=== PATIENT | female | born 2000 | race Caucasian/White ===

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

== ENCOUNTER → 2019-02-22 13:55 | Outpatient (CLI) | payer OTHER, MEDICAID, SELFPAY ==
[2019-02-23 11:23] LABS: Strep Grp B PCR NEG for Grp B Strep
== END ==
DX: Z34.03 Encounter for supervision of normal first pregnancy, third trimester (principal); Z3A.35 35 weeks gestation of pregnancy
CPT/HCPCS: 87653

== ENCOUNTER 2019-03-31 06:09 | Observation (INO) | payer OTHER, MEDICAID, SELFPAY ==
[2019-03-31 08:05] LABS: Add Manual Diff / Slide Review NO; Basophils Absolute Auto 200 /uL (0-100); Basophils Percent Auto 1.2 % (0-2); Eosinophils Absolute Auto 400 /uL (0-450); Hematocrit 34.3 % (36-46); Hemoglobin 11.2 g/dL (12.0-16.0); Lymphocytes Absolute Auto 3600 /uL (1100-4500); Lymphocytes Percent Auto 27.2 % (25-40); Mean Corpuscular HGB Conc 32.7 % (30-36); Mean Corpuscular Hemoglobin 26.7 PG (26-34); Mean Corpuscular Volume 81.4 fL (80-100); Monocytes Absolute Auto 900 /uL (0-900); Monocytes Percent Auto 6.7 % (3-14); Neutrophils Absolute Auto 8300 /uL (1500-7000); Neutrophils Percent Auto 61.9 % (50-75); Platelet Count 293 X10^3/uL (150-400); Red Blood Cell Count 4.21 X10^6/uL (4.0-5.2); Red Cell Distribution Width 15.2 % (11.6-14.8); White Blood Cell Count 13.4 X10^3/uL (4.5-11.0)
[2019-03-31] MEDS: OXYTOCIN PREMIX 30 UNIT/500 ML PLAST..BAG IV (08:14)
--- NOTE | 2019-03-31 09:04 | PM.OBHP.1 ---
OB HPI History of Present Condition Chief complaint: LABOR : 1 Para: 0 Estimated Date of Delivery: 03/28/19 Estimated Gestational Age (weeks): 40 Narrative: Erika Urrutia is a 18 year old female two para 0 AB1 who is brought in for elective induction of labor. The patient had a UPJ obstruction which has gradually gotten better during the course of the . She has been seen and evaluated at [facility]. The patient's was otherwise uneventful. She remained normotensive. Urines remain negative for glucose and protein. Evaluation Evaluation Laboratory results: Laboratory Tests 03/31/19 03/31/19 07:55 07:55 WBC 13.4 H RBC 4.21 Hgb 11.2 L Hct 34.3 L MCV 81.4 MCH 26.7 MCHC 32.7 RDW 15.2 H Plt Count 293 Neut % (Auto) 61.9 Lymph % (Auto) 27.2 [place]hen[place] % (Auto) 6.7 Eos % (Auto) 3.0 Baso % (Auto) 1.2 Neut # (Auto) 8300 H Lymph # (Auto) 3600 [place] # (Auto) 900 Eos # (Auto) 400 Baso # (Auto) 200 H Blood Type A Positive Antibody Screen Negative [facility] Social History Smoking Status: Current every day smoker Social History Smoking Status: Current every day smoker Meds Home Medications and Allergies Allergies Allergy/AdvReac Type Severity Reaction Status Date / Time pineapple Allergy Anaphylaxis Verified 09/28/18 13:48 Review of Systems Review of Systems ROS Unobtainable: All systems reviewed & are unremarkable except as noted in HPI and below Exam Const General: cooperative and healthy appearing [facility] Head: normal to inspection Ears: hearing grossly normal bilaterally Nose: external nose normal Face and sinus: normal facial exam Mouth: oral mucosae normal, lip normal, tongue normal and moist mucous membranes Teeth and gingiva: dentition normal Throat: posterior oropharynx normal Eyes General: appearance normal, both eyes and all related structures Neck Neck: normal visual inspection and full ROM Chest Chest: normal inspection of the chest and normal palpation of entire chest wall Breast inspection: normal inspection of the breasts and normal inspection of the axillae Breast Palpation: normal palpation of the breasts and normal palpation of the axillae Resp Effort & Inspection: normal respiratory effort Auscultation: clear to auscultation bilaterally Cardio Palpation: normal PMI Rate: regular rate Rhythm: regular rhythm Heart Sounds: S1 normal and S2 normal GI Inspection: normal to inspection Palpation: soft and no hepatosplenomegaly Percussion: normal to percussion Auscultation: normal bowel sounds OB/External & Speculum: external exam normal Manual OB Exam: dilated 1, effaced 50% and station -2 Uterus Location (Fundal Height): 38 Back/Spine/Pelvis Thoracic/Lumbar Spine: thoracic and lumbar spine normal to inspection Skin General: no rashes or lesions noted Neuro General: alert, oriented x3, tone normal and moves all extremities Cognition: normal cognition Speech: speech normal Gait: normal gait Motor: muscle tone normal throughout Sensory Exam: no sensory deficits noted Extrem General: normal to inspection and normal exam except as noted Psych Appearance: grossly normal and well kempt Mental Status: mental status grossly normal Speech and Movement: speech and movement normal Objective Labs Result Diagrams: 03/31/19 07:55 Labs: Laboratory Results - last 24 hr 03/31/19 03/31/19 07:55 07:55 WBC 13.4 H RBC 4.21 Hgb 11.2 L Hct 34.3 L MCV 81.4 MCH 26.7 MCHC 32.7 RDW 15.2 H Plt Count 293 Neut % (Auto) 61.9 Lymph % (Auto) 27.2 Mchenry % (Auto) 6.7 Eos % (Auto) 3.0 Baso % (Auto) 1.2 Neut # (Auto) 8300 H Lymph # (Auto) 3600 [place] # (Auto) 900 Eos # (Auto) 400 Baso # (Auto) 200 H Blood Type A Positive Antibody Screen Negative Assessment and Plan Assessment and Plan Assessment and Plan narrative: Term intrauterine History of UPJ obstruction Patient for induction of labor Patient's cervix appears less favorable than exam in the office. Will give the patient 3 hours of Pitocin and then re-exam
--- NOTE | 2019-03-31 11:07 | DI.US.S_ITS ---
PROCEDURE: US OB LIMITED INDICATIONS: HEART RATE DECELS OUTSIDE/PRIOR DATING DATA: Last menstrual period (LMP): Not available. LMP-based estimated date of delivery (JEISON): Not available. First dating scan (date and location): 09/28/2018 at [facility] Estimated date of delivery (JEISON) from first dating scan: 03/26/2019. TECHNIQUE: Real-time scanning was performed of the fetus, with image documentation and biometric measurements. Endovaginal scanning: Not performed COMPARISON: [facility], US, US OB <= 14 WEEKS FETUS, 10/01/2018, 14:02. [facility], US, US OB GROWTH, 09/28/2018, 9:44. [facility], US, US OB >= 14 WEEKS FETUS, 11/26/2018, 11:13. [facility], US, US ABDOMEN LIMITED, 11/09/2018, 12:13. FINDINGS: General: A single living intrauterine gestation is present. Presentation: Vertex. Placenta: Placental position is anterior, without previa. Amniotic fluid index: 20.1 cm, normal range is 5-24 cm. heart rate: 120 beats per minute. Maternal cervical canal: Not visualized IMPRESSION: 1. A single living intrauterine gestation with estimated date of delivery 03/26/1019. 2. Normal DIPAK. 3. The fetus is in vertex presentation. 4. Placenta anterior. The inferior placenta margin is not visualized due to gestational age. Dictated by: Lora Cintron M.D. on 03/31/2019 at 11:51 Approved by: Lora Cintron M.D. on 04/01/2019 at 17:59
--- NOTE | 2019-03-31 12:07 | PM.OBPNLAB ---
Date/Time Date Patient Seen: 03/31/19 Time Patient Seen: 12:09 Pain Control Pain control: tolerating well Pelvic Exam Dilation (cm): 1 Effacement (%): 50 station: -2 Amniotic membrane status: Intact Comments: Patient with heart tones in the 105-110 range. Scratching on baby's head raises heart tones this repetitively to 150. Ultrasound shows an DIPAK of 20. DIPAK shows breathing and good movement. Contractions Contractions on admission: irregular Status status: Category ll Heart Rate Baseline: 105 Monitor Accelerations: Present Monitor Decelerations: Absent Assessment and Plan Assessment: other (Failed induction. Cervix not is favorable is thought. Will repeat induction with prostaglandins) Plan: other
--- NOTE | 2019-03-31 12:12 | P.TNLD_ITS ---
[facility] Social History Smoking Status: Current every day smoker Social History Smoking Status: Current every day smoker Review of Systems Review of Systems ROS Unobtainable: All systems reviewed & are unremarkable except as noted in HPI and below Exam Vital Signs (past 8 hours): Please see last progress note Objective Labs Result Diagrams: 03/31/19 07:55 Labs: Laboratory Results - last 24 hr 03/31/19 03/31/19 07:55 07:55 WBC 13.4 H RBC 4.21 Hgb 11.2 L Hct 34.3 L MCV 81.4 MCH 26.7 MCHC 32.7 RDW 15.2 H Plt Count 293 Neut % (Auto) 61.9 Lymph % (Auto) 27.2 [place] % (Auto) 6.7 Eos % (Auto) 3.0 Baso % (Auto) 1.2 Neut # (Auto) 8300 H Lymph # (Auto) 3600 [place] # (Auto) 900 Eos # (Auto) 400 Baso # (Auto) 200 H Blood Type A Positive Antibody Screen Negative Evaluation Evaluation Laboratory results: Laboratory Tests 03/31/19 03/31/19 07:55 07:55 WBC 13.4 H RBC 4.21 Hgb 11.2 L Hct 34.3 L MCV 81.4 MCH 26.7 MCHC 32.7 RDW 15.2 H Plt Count 293 Neut % (Auto) 61.9 Lymph % (Auto) 27.2 [place] % (Auto) 6.7 Eos % (Auto) 3.0 Baso % (Auto) 1.2 Neut # (Auto) 8300 H Lymph # (Auto) 3600 [place] # (Auto) 900 Eos # (Auto) 400 Baso # (Auto) 200 H Blood Type A Positive Antibody Screen Negative Diagnosis, Plan/Disposition Plan/Disposition Plan: Failed induction Cervix much less favorable then thought At heart tones at 1:05 a.m. with great accelerations and good [id number]. Scalp stimulation showed increases repetitively 250. Ultrasound shows DIPAK of 20 biophysical profile of 02/24 Plan is for misoprostol cervical ripening on Thursday and Pitocin induction on Thursday due to scheduling issues
== END 2019-03-31 12:20 | disposition home or self-care (01) ==
PROVIDERS: PCP Family Medicine
DX: O61.0 Failed medical induction of labor (principal); Z3A.40 40 weeks gestation of pregnancy
CPT/HCPCS: 36592; 59025; 59050; 76815; 85025; 86850; 86900; 86901; 96360; G0378; G0379; J2590

== ENCOUNTER 2019-04-02 00:56 | Inpatient (IN) | payer OTHER, MEDICAID, SELFPAY ==
[2019-04-02] MEDS: LACTATED RINGERS 1,000 ML 125 ML IV (01:20)
--- NOTE | 2019-04-02 02:17 | PM.OBHP.1 ---
OB HPI Date/Time Date of admission: 04/02/19 Date Patient Seen: 04/02/19 Time Patient Seen: 02:17 History of Present Condition Chief complaint: evaluation of labor : 2 Para: 0 Estimated Gestational Age (weeks): 40 Narrative: Erika Urrutia is a 18 year old female presents in active labor History of Present care: good care Dating criteria: LMP confirmed by 1st trimester US Ultrasounds: normal 1st trimester US, normal mid trimester US and abnormal US findings Abnormal ultrasound findings: UPJ obstruction Obstetrical complications: none Medical complications: none Evaluation Evaluation Baseline heart rate: 150 Variability: Moderate (11-25) monitor accelerations: Absent monitor decelerations: Absent Contraction Frequency (minutes): 3 Uterine Contraction Intensity: Strong/Firm Category of Tracing: I Cervical dilation (cm): 9 Cervical effacement (%): 100 station: +1 PFSH Social History Smoking Status: Current every day smoker Social History Smoking Status: Current every day smoker Meds Home Medications and Allergies Allergies Allergy/AdvReac Type Severity Reaction Status Date / Time pineapple Allergy Anaphylaxis Verified 09/28/18 13:48 Review of Systems Review of Systems ROS Unobtainable: All systems reviewed & are unremarkable except as noted in HPI and below Exam Narrative Exam Narrative: Patient is completely dilated at plus two station Assessment and Plan Assessment and Plan Assessment and Plan narrative: Term intrauterine Fetus with history of UPJ obstruction Rapid active labor now complete Epidural in place Begin to push
[2019-04-02 02:36] LABS: Add Manual Diff / Slide Review NO; Basophils Absolute Auto 100 /uL (0-100); Basophils Percent Auto 0.5 % (0-2); Eosinophils Absolute Auto 200 /uL (0-450); Eosinophils Percent Auto 1.3 % (2-4); Hematocrit 37.1 % (36-46); Hemoglobin 12.1 g/dL (12.0-16.0); Lymphocytes Absolute Auto 4700 /uL (1100-4500); Lymphocytes Percent Auto 25.7 % (25-40); Mean Corpuscular HGB Conc 32.7 % (30-36); Mean Corpuscular Hemoglobin 26.7 PG (26-34); Mean Corpuscular Volume 81.6 fL (80-100); Monocytes Absolute Auto 900 /uL (0-900); Monocytes Percent Auto 4.9 % (3-14); Neutrophils Absolute Auto 12400 /uL (1500-7000); Neutrophils Percent Auto 67.6 % (50-75); Platelet Count 337 X10^3/uL (150-400); Red Blood Cell Count 4.54 X10^6/uL (4.0-5.2); Red Cell Distribution Width 15.4 % (11.6-14.8); White Blood Cell Count 18.4 X10^3/uL (4.5-11.0)
[2019-04-02] MEDS: OXYTOCIN 10 UNIT/ML VIAL IM (03:03)
--- NOTE | 2019-04-02 03:08 | PM.OBPRVD ---
Labor & Delivery Delivery date: 04/02/19 Intrapartal events: None Cervical ripening method: none Induction method: none Delivery monitor: external FHT and external uterine Route of delivery: L&D Laceration Description: None Anesthesia type: Epidural Complications: None Narrative: Patient presented in active labor at 6 cm. Rupture membranes occurred. Patient had a low spinal and epidural placed and was complete. Patient pushed for approximately 20 minutes and delivered spontaneously a live born male with scores of eight at 1 minutes and nine at 5 minutes in good condition. There was meconium staining. Cord blood was obtained. Placenta delivered spontaneously. Cord had three vessels. Estimated blood loss was 200 cc. Plan for aftercare: Routine OB care
[2019-04-02 05:02] VITALS: BP 125/85
[2019-04-02] MEDS: FERROUS GLUCONATE 324 MG TABLET PO (13:47)
[2019-04-02] MEDS: IBUPROFEN 600 MG TABLET PO (13:47)
[2019-04-02] MEDS: DOCUSATE 250 MG CAPSULE PO (13:47)
[2019-04-03] MEDS: DOCUSATE 250 MG CAPSULE PO (08:43)
[2019-04-03] MEDS: IBUPROFEN 600 MG TABLET PO (08:44)
[2019-04-03] MEDS: FERROUS GLUCONATE 324 MG TABLET PO (08:44)
--- NOTE | 2019-04-03 09:34 | P.DS_ITS ---
Discharge Providers Provider Date of admission: 04/02/19 00:56 Discharge Date: 04/03/19 Primary care physician: Chitra Calderon Consults: 04/02/19 05:04 Consult to Wire Drawing Machine Operator Routine Comment: Discharge provider: Juan Rodriguez MD Summary Hospital Course Date Patient Seen: 04/03/19 Time Patient Seen: 09:35 Procedures: Epidural anesthesia Spontaneous vaginal delivery Hospital Course: The patient is a 18-year-old single white female two para 0 AB1 who presented in active labor at term. The patient had a history during the preg fabiano with a fetus with a UPJ obstruction which resolved. The patient was 6 cm on admission and made rapid progress to complete. She delivered spontaneously a live born male infant with scores of eight at 1 minute nine at 5 minutes in good condition. There were no cervical or vaginal lacerations. There is no perineal lacerations. The estimated blood loss was 200 cc. Post delivery the patient did well. She remained afebrile stable vital signs and was progressively element and ambulated. She was discharged home for follow-up in four weeks Peripartum Data Delivery Method: Natural Vaginal Laceration description: None complications: none Status at Discharge Cognitive/behavioral status at discharge: oriented Functional status at discharge: independent ambulation Overall status at discharge: patient is progressing back to baseline Time Spent with Patient Time attestation: Total time spent providing and/or coordinating discharge services: Time spent: Less than 30 minutes Objective Labs Result Diagrams: 04/02/19 01:25 Exam Narrative Exam Narrative: Fundus is U minus two Lochia scant Perineum without ecchymoses Discharge Plan Discharge Plan Patient Disposition: Home Discharge Med Rec/Prescriptions Prescriptions: New Dermoplast (with menthol) 20-0.5 % Aerosol 1 spray topical Q1HR PRN (Reason: perineal pain) Qty: 1 RF: 0 ibuprofen 600 mg Tablet 600 mg PO Q6HR PRN (Reason: Pain, Mild (1-3)) Qty: 16 RF: 0 docusate sodium 250 mg Capsule 250 mg PO DAILY Qty: 10 RF: 0 Yzj-K-Kgfkbi Cream 1 applic topical PRN PRN (Reason: Tenderness) Qty: 1 RF: 0 ferrous gluconate 324 mg (38 mg iron) Tablet 324 mg PO DAILY Qty: 60 RF: 0 No Action No Known Home Medications RF: 0 Follow up/Referrals: Chitra Calderon [Primary Care Provider] - Provider Discharge Instructions Diet: Diet as Tolerated Activity: Up ad snow May shower Skin/Wound/Dressing Care Report to your healthcare provider any signs of infection, such as:: chills, fever, increased pain, unusual drainage and unusual redness Other wound treatment: Keep perineum clean and dry Discharge Data Primary Care Provider: Chitra Calderon
[2019-04-03 09:48] LABS: Hematocrit 34.2 % (36-46)
[2019-04-03 11:02] VITALS: BP 125/85; PULSE 73; RESP 18; TEMP 36.4
== END 2019-04-03 13:25 | disposition home or self-care (01) | DRG 560 ==
PROVIDERS: PCP Family Medicine
DX: O99.334 Smoking (tobacco) complicating childbirth (principal); Z37.0 Single live birth; Z3A.40 40 weeks gestation of pregnancy; O77.0 Labor and delivery complicated by meconium in amniotic fluid; F12.929 Cannabis use, unspecified with intoxication, unspecified; F17.210 Nicotine dependence, cigarettes, uncomplicated
CPT/HCPCS: 01967; 36415; 59050; 59409; 85014; 85025; 86850; 86900; 86901; G0379; J2590

== ENCOUNTER 2020-08-30 03:09 | Inpatient (IN) | payer OTHER, MEDICAID, SELFPAY ==
[2020-08-30] MEDS: LACTATED RINGERS 1,000 ML 100 ML IV (03:35)
[2020-08-30 03:51] LABS: Add Manual Diff / Slide Review NO; Basophils Absolute Auto 100 /uL (0-100); Basophils Percent Auto 0.9 % (0-2); Eosinophils Absolute Auto 400 /uL (0-450); Eosinophils Percent Auto 2.7 % (2-4); Hematocrit 36.9 % (36-46); Hemoglobin 11.6 g/dL (12.0-16.0); Lymphocytes Absolute Auto 4300 /uL (1100-4500); Lymphocytes Percent Auto 31.4 % (25-40); Mean Corpuscular HGB Conc 31.5 % (30-36); Mean Corpuscular Hemoglobin 25.7 PG (26-34); Mean Corpuscular Volume 81.4 fL (80-100); Monocytes Absolute Auto 1000 /uL (0-900); Neutrophils Absolute Auto 8000 /uL (1500-7000); Platelet Count 430 X10^3/uL (150-400); Red Blood Cell Count 4.53 X10^6/uL (4.0-5.2); Red Cell Distribution Width 16.3 % (11.6-14.8); White Blood Cell Count 13.8 X10^3/uL (4.5-11.0)
[2020-08-30 04:04] LABS: COVID19 -Nasal RAPID Negative (Negative)
--- NOTE | 2020-08-30 04:13 | P.PCN_ITS ---
[facility] Pre-procedure Procedure: Continuous Lumbar Epidural for L&D Attending OB provider: Benigno Iniguez PMH/EDITH narrative: term labor. In extremis on arrival, covid (-), 9cm per RN, h/o rapid delivery Hx: No personal or family history of anesthesia problems. ASA Class: II Labs: Hct 36.9 % (36-46) 08/30/20 03:15 Hct Cancelled 08/30/20 03:15 Plt Count 430 X10^3/uL (150-400) H 08/30/20 03:15 Plt Count Cancelled 08/30/20 03:15 Medications: Current Medications Generic Name Dose Route Start Last Admin Trade Name Freq PRN Reason Stop Dose Admin Diphenhydramine HCl 25 mg 08/30/20 03:44 Diphenhydramine 50 Mg/Ml Vial IV Q10M PRN Pruritis Lactated Ringer's 1,000 mls @ 100 mls/hr 08/30/20 03:45 Lactated Ringers IV CONT RONIT Lactated Ringer's 1,000 mls @ 100 mls/hr 08/30/20 03:45 Lactated Ringers IV CONT RONTI FENT 2MCG/ML BUPIV 0.125% EPI 200 mcg in 100 mls @ 6 mls/hr 08/30/20 03:45 Fentanyl/Bupiv/Ns 2mcg/Ml - 0.125% EPIDURAL CONT RONIT Lactated Ringer's 1,000 mls @ 100 mls/hr 08/30/20 04:15 Lactated Ringers IV CONT RONIT Allergies: Allergies Allergy/AdvReac Type Severity Reaction Status Date / Time pineapple Allergy Severe Anaphylaxis Verified 08/29/20 11:30 Procedure Insertion date: 08/30/20 Insertion time: 04:00 Prep/Local: betadine x3 Interspace: L2-3 Patient position: sitting Needle: 18 gauge Hustead (CSE: 27g Pencan through Hustead, clear CSF, 1mL 0.25% bupiv) Loss of resistance with: saline GIANNI at (cm): 4 Catheter placed at SKIN (cm): 8 Catheter in SPACE (cm): 4 Insertion: Yes CSF, No Blood, No Paresthesia with insertion, No Paresthesia with injection and No Test dose reaction Infusion Subsequent interventions: Wet tap. CSE Performed with clear CSF, 27g Pencan. Pt suddenly moved with needle in place resulting in free flow CSF through Hustead. Catheter placed. Clear CSF aspirated through catheter. No further medication given. . Immediately after delivery of baby, pt lost consciousness briefly. Non- rebreather O2 mask applied, spontaneous breathing remained, pt was arousable upon my arrival. BP remained normal, HR noted to be in 50's, pt lethargic but responsive, LOCx4. Over 15-20 minutes, pt's clinical status improved. Placenta delivered without difficulty. VS remained stable and normal. HR to 70's-80's. Baby vigorous and crying with good color. Will advise to leave epidural catheter for 12h, monitor for s/s of PDPH. Promote fluids, analgesics, caffeine. Post-procedure Anesthesia time START: 03:55 Anesthesia time END: 04:42 Post-procedure Anesthesia Assessment: Yes CV function: HR/BP stable, Yes Resp function: RR/sat/airway adequate, Yes Post-op hydration adequate, Yes Pain control adequate, Yes Nausea & vomiting absent, Yes Mental status appropriate and Yes Anesthesia complications (inadvertent dural puncture with Hustead.)
[2020-08-30] MEDS: OXYTOCIN 10 UNIT/ML VIAL 20 UNIT (04:28)
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
[2020-08-30 05:22] VITALS: BP 119/73
[2020-08-30 05:24] LABS: HIV 1 & 2 Ab/Ag 4th Gen Combo NEGATIVE (NEGATIVE); Hepatitis B Surface Antigen NEGATIVE s/c (NEGATIVE); Rubella Antibody IgG 7.9 IU/mL (>15)
[2020-08-30 06:17] LABS: UR Morphine/Opiate cutoff 300 Negative (Negative); Ur Creatinine Normal (Normal); Ur Specific Gravity Normal (Normal); Urine Amphetamines Negative (Negative); Urine Barbiturates Negative (Negative); Urine Benzodiazepines Negative (Negative); Urine Cocaine Negative (Negative); Urine MDMA Negative (Negative); Urine Methadone Negative (Negative); Urine Methamphetamines Negative (Negative); Urine Oxycodone Negative (Negative); Urine Phencyclidine Negative (Negative); Urine Tetrahydrocannabinol Positive (Negative); Urine Tricyclic Antidepressant Negative (Negative); Urine pH Normal (Normal)
[2020-08-30] MEDS: IBUPROFEN 600 MG TABLET PO ×3 (06:23→18:16)
[2020-08-30 07:35] LABS: Urine N gonorrhoeae NOT DETECTED
[2020-08-30 07:36] LABS: Urine Chlamydia NOT DETECTED
--- NOTE | 2020-08-30 08:52 | PM.PROC.1 ---
Procedures Date/Time Date of procedure: 08/30/20 Time of procedure: 04:53 General Procedure description: 20-year-old female G2 para 1 at term in active labor. Stage I of labor. Patient admitted to the hospital at approximately 3:15 a.m. in the a.m.. Patient was actively cassidy. Patient was placed on the monitor had normal size vital signs and category 1 tracing. Cervical exam showed her to be 6-7 cm. Minus one station by than report from the nurse. Patient had limited to no care. Patient progressed fairly rapidly during stage I of labor. And became complete at approximately 4:00 a.m.. During this process patient had good heart tones while she was on the monitor vital signs were stable. laboratory testing and swabs were done for infection. Patient was requesting an epidural for pain control and this was also provided during stage I of labor. Stage II of labor approximately half an hour. Patient post to deliver a viable female infant in vertex position. Baby had nuchal cord x2 which were easily reduced. Baby was placed on mother's abdomen. The we did do some delayed cord clamping. About 5 3-5 minutes after baby was delivered on mother's abdomen. Mom became lighthead and tell. And then became unresponsive. Baby was removed from mother's abdomen and taken to the warmer. Attention was then taken to the mom. Mom had a pulse. She had respiratory rate. Over the ensuing 3-5 minutes patient was unresponsive. Baby was taken to the warmer. Attention was provided to the mom. A code was called because of the limited amount of people in the center. Anesthesia was readily available help patient with oxygenation with a Venti mask pulse was found to be bradycardic. Her blood pressure was low. She was given a fluid bolus. Over the ensuing a 5 minutes patient became more responsive. At no time did she have loss of control of respiratory status or was pulseless. Afterwards the as patient responded. And resolved her bradycardic hypotensive episode. She which is complaining of dizziness. Stage III of labor. Delivery of intact placenta with three-vessel cord. Blood loss was 300 cc. Baby was doing well in Apgars 8 and 9. After initial passing out episode. Once mom was arouse she had good pain control. Bleeding was as anticipated. Baby was provided back to mom and she was doing well within 15 minutes after the delivery.
[2020-08-30] MEDS: ACETAMINOPHEN 325 MG TABLET 650 MG PO ×2 (12:19→18:16)
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
[2020-08-30 19:34] VITALS: BP 103/69; PULSE 65; RESP 18; TEMP 36.8
[2020-08-31 01:38] LABS: HBsAg Screen Negative (Negative); Hep A AB IgM Negative (Negative); Hepatitis A Ab, Total Positive (Negative); Hepatitis B Core Antibody IgM Negative (Negative); Hepatitis B Core Total Negative (Negative); Hepatitis B Surface AB, Qual Non Reactive (.); Hepatitis C Virus Ab <0.1 s/co ratio (0.0-0.9)
[2020-08-31 09:07] LABS: RPR Screen Non Reactive (Non Reactive)
== END 2020-08-30 20:02 | disposition left against medical advice (07) | DRG 560 ==
PROVIDERS: Admitting Provider Family Medicine; PCP Family Medicine; Referring Provider Family Medicine; Visit Provider Family Medicine
DX: O69.81X0 Labor and delivery complicated by cord around neck, without compression, not applicable or unspecified (principal); R55 Syncope and collapse; O99.892 Other specified diseases and conditions complicating childbirth; R00.1 Bradycardia, unspecified; Z20.822 Contact with and (suspected) exposure to COVID-19; Z3A.39 39 weeks gestation of pregnancy; Z37.0 Single live birth; O99.334 Smoking (tobacco) complicating childbirth
CPT/HCPCS: 01967; 36415; 59050; 59409; 80055; 80074; 80305; 86704; 86706; 86708; 86850; 86900; 86901; 87070; 87075; 87077; 87186; 87205; 87389; 87491; 87591; 87635; 99222; C9803; G0379; J2590